=== PATIENT | male | born 1995 | race Caucasian/White ===

== ENCOUNTER 2017-09-11 02:16 | Emergency (ER) | payer BC ==
--- NOTE | 2017-09-11 02:36 | ERPHSYRPT ---
- History of Present Illness Time Seen by Provider: 09/11/17 02:32 Source: patient Physician History: redness in right eye started few hours ago Timing/Duration: today Location: right eye Severity: moderate Apparent Injury: no Associated Symptoms: sensitivity to light, redness, matting, eyelid swelling, No decreased vision, No blurred vision Visual Assistive Devices: Contacts Chemical Exposure: No Trauma: No Welding Arc/Tanning Bed Exposure: No - Review of Systems Constitutional: No Symptoms Eyes: Discharge, Eye Pain, Eye Redness, Itchy, Tearing, No Photophobia, No Vision Changes, No Double Vision, No Foreign Body Sensation Ears, Nose, & Throat: No Symptoms Respiratory: No Symptoms Cardiac: No Symptoms - Physical Exam General Appearance: no apparent distress Vision Acuity Right Eye: 20/20 Vision Acuity Left Eye: 20/20 Eye Exam: right eye: conjunctival inflammation, eyelid inflammation Ears, Nose, Throat Exam: normal ENT inspection Neck Exam: normal inspection - Course Nursing assessment & vital signs reviewed: Yes Ordered Tests: Medication Summary Generic Name Dose Route Start Last Admin Trade Name Leonardq PRN Reason Stop Dose Admin Neomycin/Polymyxin/Hydrocortisone 2 ml 09/11/17 02:45 Cortisporin Eye Drops OP 10/11/17 02:44 Q4H MARLI - Progress Progress: unchanged Progress Note: 09/11/17 02:34 cortisporin eye drops given in ER 09/11/17 02:34 advised to avoid wearing contact lens for 3 days Counseled pt/family regarding: diagnosis, need for follow-up - Departure Time of Disposition: 02:36 Departure Disposition: Home Clinical Impression: Conjunctivitis Qualifiers: Conjunctivitis type: acute Acute conjunctivitis type: unspecified Laterality: right Qualified Code(s): H10.31 - Unspecified acute conjunctivitis, right eye Condition: Stable Critical Care Time: No Referrals: DOCTOR,NO FAMILY [Primary Care Provider] - Instructions: Conjunctivitis ([place]) (DC) Additional Instructions: EYE PROBLEM 1. If a patch is applied, your vision will be impaired. Do not drive. 2. The more you rest your good eye, the better your affected eye will feel. 3. Use any eye drops or ointments as prescribed by the emergency room physician. 4. See your family physician or return to the emergency department for any increasing pain or decreased vision. 5. Use good hygiene and keep eye clean. 6. Do not rub the eye.
[2017-09-11] MEDS ORDERED: Cortisporin Eye Drops OP SCH (02:45)
[2017-09-11 02:48] VITALS: BP 125/76; PULSE 78; O2SAT 97
[2017-09-11] MEDS ORDERED: Cortisporin Eye Drops OP ONE (02:54)
== END 2017-09-11 03:00 | disposition home or self-care (01) ==
LOC: ED 02:16
DX: H10.9 Unspecified conjunctivitis (principal)
CPT/HCPCS: 99283; A9270-GY